=== PATIENT | male | born 1990 | race Caucasian/White ===

== ENCOUNTER 2017-01-25 18:27 | Emergency (ER) | payer SELFPAY | END 2017-01-25 22:59 | disposition home or self-care (01) | LOC: D.ER 18:27 | DX: S49.91XA Unspecified injury of right shoulder and upper arm, initial encounter (principal); W17.81XA Fall down embankment (hill), initial encounter; Y93.89 Activity, other specified; Y92.89 Other specified places as the place of occurrence of the external cause; F17.200 Nicotine dependence, unspecified, uncomplicated ==